=== PATIENT | male | born 1965 | race Two or more races ===

== ENCOUNTER 2024-08-20 21:47 | Emergency (ER) | payer BC, OTHER ==
[~2024-08-20] VITALS: Ht 182.9 cm; Wt 142.9 kg
[2024-08-20 22:41] LABS: PLATELET COUNT (AUTO) 201 K/uL (150-450); RED BLOOD CELL COUNT(AUTO) 4.15 MIL/uL (4.5-6.0); RED CELL DISTRIBUTION WIDTH 14.2 % (11.5-15.0); WHITE BLOOD COUNT (AUTO) 9.4 K/uL (4.3-11.0)
[2024-08-20 22:55] LABS: AMPHETAMINE, URINE NEGATIVE (NEGATIVE); BARBITURATE, URINE NEGATIVE (NEGATIVE); BENZODIAZEPINE, URINE NEGATIVE (NEGATIVE); CANNABINOID, URINE NEGATIVE (NEGATIVE); COCCAINE, URINE NEGATIVE (NEGATIVE); OPIATE, URINE NEGATIVE (NEGATIVE)
[2024-08-20 22:56] LABS: APPEARANCE,URINE CLEAR (CLEAR); BLOOD, URINE NEGATIVE Ery/uL (NEGATIVE); LEUKOCYTE ESTERASE ,URINE NEGATIVE (NEGATIVE); NITRITE, URINE NEGATIVE (NEGATIVE); UGLUCOSE NEGATIVE (NEGATIVE)
[2024-08-20 22:57] LABS: CALCIUM, SERUM 9.0 mg/dL (8.5-10.1); CREATININE 1.5 mg/dL (0.6-1.3); SODIUM SERUM 149 mmol/L (136-145); UREA NITROGEN, BLOOD 27 mg/dL (7-18)
[2024-08-20 23:03] LABS: ALCOHOL, BLOOD 280 mg/dL (0-10); ASPARTATE AMINOTRANSFERASE 33 U/L (15-37); TOTAL PROTEIN, SERUM 7.6 g/dL (6.4-8.2)
[2024-08-20 23:15] LABS: SQUAMOUS EPITHELIAL CELL,UR Moderate /HPF (None Seen)
[2024-08-20 23:17] LABS: ADD URINE CULTURE YES
[2024-08-20] MEDS: IV NS 0.9% 1,000 ML BAG IV ONE (23:49)
[2024-08-21 06:33] VITALS: TEMP 98
[2024-08-21 09:08] VITALS: BP 142/80; O2SAT 98
== END 2024-08-21 09:08 | disposition home or self-care (01) ==
LOC: ER 21:58
DX: F10.129 Alcohol abuse with intoxication, unspecified (principal); Z79.899 Other long term (current) drug therapy; Z20.822 Contact with and (suspected) exposure to COVID-19; Y90.8 Blood alcohol level of 240 mg/100 ml or more
CPT/HCPCS: 99285; 96360; 85025; 80048; 87086; 80076; 81001; 36415; 80143; 80320; 80307; 87426; J7030; G0480